=== PATIENT | male | born 1970 | race Caucasian/White ===

== ENCOUNTER 2016-12-29 15:39 | Outpatient (CLI) | payer OTHER ==
[~2016-12-29] VITALS: Ht 170.2 cm; Wt 99.5 kg
[2016-12-29 15:50] VITALS: BP 166/88; PULSE 88; RESP 18; Ht 170.2 cm; Wt 99.5 kg
--- NOTE | 2016-12-29 16:38 | PN ---
Date/Time of Note Date/Time of Note DATE: 12/29/16 TIME: 15:59 Outpatient Progress Note Chief Complaint Syncopal episode/hypertension/dizziness/impaired hearing/hypothyroidism/ HPI Syncopal episode, patient has 2 syncopal episode in last 1 month, patient usually standing up and patient passes out, no aura or no seizure-like activity , no headache or dizziness, no weakness, patient passes out all of suddenly, no loss of bladder or bowel control, patient was hospitalized 2-3 times, cardiac work was done, according to the daughter he had a EEG done, Hypertension/no headache or dizziness, today blood pressure was 190 systolic in the morning, patient has been on the blood pressure medication, no local focal weakness, Dizziness/patient feel dizziness lightness, patient on Antivert, patient also has vertigo, Impaired hearing patient has slightly impaired hearing on her right side, Hypothyroidism/patient has hypothyroidism, on medication, Review of Systems Const: No Fever, no chills, no Wt. loss, no Fatigue, normal appetite, no diaphoresis. Eyes: No pain, no discharge, no redness, no visual change, no foreign body. ENT: No pain, no bleeding, no congestion, no sore throat, no dysphagia, no discharge or rhinitis. Slight impaired hearing in the right ear, Lymph: No adenopathy, no tender nodes, no lymphedema. Resp: No SOB, no cough, no sputum, no wheezing, no chest pain. CV: No chest pain, no palpitaions, no MENJIVAR, no PND, no edema. Patient has multiple syncopal episode, patient had 2 episodes last 1 month, patient was hospitalized, workup was done, nothing found GI: Normal appetite, no pain, no nausea, no vomiting, no diarrhea, no blood, no constipation. : No frequency, no urgency, no dysuria, no hematuria, no flank pain, no discharge, no bleeding. Musc: No bone/joint pain, no back pain, no neck pain, no knee pain, no restricted ROM. Skin: No rash, no skin lesions, no erythema, no laceration, no bruising, no pruritus. Neuro: No LUCIA, no dizziness, no syncope, no seizure, no focal-weakness. Endo: No polyuria, no polydypsia, no dry-skin, no temp-intolerance. Psych: No hallucinations, no depression, no anxiety, no suicidal ideation. Ext: No edema, no pain, no ulcer, no weakness. Physical Exam Vital Signs Date Time Temp Pulse Resp B/P Pulse Ox O2 Delivery O2 Flow Rate FiO2 12/29/16 15:50 98.6 88 18 166/88 96 Room Air General Appearance: A [A 46] year-old male who appears well-developed, well- nourished, in no acute distress.] HEENT: [Head normocephalic, atraumatic. Pupils equal, round, reactive to light and accommodate. Sclerae are no jaundice. Nasal turbinates pink without erythema or nasal discharge. Mucous membranes pink and moist without lesions. Oropharynx clear without any exudate or discharge.] NECK: [Supple. Trachea midline, No thyromegaly, No cervical lymphadenopathy, No mass, No carotid bruits, No JVD, Carotid pulses 2+ bilaterally.] PULMONARY: [Clear to auscultaion bilaterally, No retractions, Chest expansion symmetric bilaterally, no rales, no ronchi, no dulness on percussion.] CARDIAC: [Normal SI and S2, Regular rate and rythm, no murmur, gallop, or rub.] GASTROINTESTINAL: [Abdomen is soft, non-tender, Non Rigid, No distention, Positive bowel sounds x4 quadrants, Liver normal.] SKIN: [Warm, dry, no rash, no bruise, no echmosis.] EXTREMITIES: [Bilateral lower extremities normal, no edema, no phlabitus, pulse palpable, no contracture.] MUSCULOSKELETAL: [Spine Normal, Non-tender, Normal range of motion, No swelling , no deformity, no clubbing, or cyanosis, the patient has no edema to bilateral lower extremities, dorsalis pedis pulses palpable bilaterally.] NEUROLOGIC: [The patient is awake, alert, oriented, responding to yes/no questions appropriately, moving all extremities, cranial nerve intact, normal strenght, normal power, normal coordination, normal gait.] Allergies Coded Allergies: No Known Drug Allergies (Verified Allergy, Unknown, 12/29/16) PMH Hypertension/dizziness/hypothyroidism/syncopal episode/vertigo/hypertrophy of both inferior nasal turbulence N nasal surgery/skin graft/orthopedic surgery right shoulder/nasal polyp surgery s Social Hx No smoking or drinking no drugs, Family Hx Noncontributory Assessment/Plan Impression Syncopal episode/unknown reason Hypertension/vertigo/impaired hearing/hypothyroidism Plan Patient blood pressure still elevated, patient education done, patient daughter explained multiple reasons of syncopal episode, patient daughter explained that if possible if they can video when he falls down and bring it to us or her primary care physician, Patient encouraged to follow with the primary care physician, As patient's blood pressure is elevated, patient advised to take lisinopril 20 mg in the morning, check the blood pressure noon and in the evening, his blood pressure is about 150 give extra dose of lisinopril, We will check if patient has neurological workup or not, the patient has no neurological workup will requested, PURA JUAN MD Dec 29, 2016 16:09
== END 2016-12-29 16:47 | disposition home or self-care (01) ==
LOC: DCC 15:39
PROVIDERS: ATTEND Internal Medicine
DX: P59.9 Neonatal jaundice, unspecified (principal); I10 Essential (primary) hypertension; R42 Dizziness and giddiness; H91.90 Unspecified hearing loss, unspecified ear; E03.9 Hypothyroidism, unspecified

== ENCOUNTER 2017-01-12 13:54 | Outpatient (CLI) | payer OTHER ==
[~2017-01-12] VITALS: Ht 170.2 cm; Wt 98.6 kg
[2017-01-12 14:03] VITALS: BP 143/81; PULSE 78; RESP 16; Ht 170.2 cm; Wt 98.6 kg
--- NOTE | 2017-01-12 14:48 | PN ---
Date/Time of Note Date/Time of Note DATE: 01/12/17 TIME: 14:42 Outpatient Progress Note Chief Complaint Febrile illness/hypertension/dizziness/hypothyroidism HPI Patient had a febrile illness, patient was seen in emergency room, patient had viral infection, patient was not given any medication, Hypertension/no headache or dizziness, no local focal weakness, very impaired vision, Dizziness/patient still has occasional dizziness, patient when bends or turns fast patient does get dizziness, Hypothyroidism/no puffiness of eyes, no constipation, on medication, History of syncopal episode/patient has a history of syncopal episode, patient was recently hospitalized, no syncope after discharge, Review of Systems Const: No Fever, no chills, no Wt. loss, no Fatigue, normal appetite, no diaphoresis. Eyes: No pain, no discharge, no redness, no visual change, no foreign body. ENT: No pain, no bleeding, no congestion, no sore throat, no dysphagia, no discharge or rhinitis slight impaired hearing,. Lymph: No adenopathy, no tender nodes, no lymphedema. Resp: No SOB, no cough, no sputum, no wheezing, no chest pain. CV: No chest pain, no palpitaions, no MENJIVAR, no PND, no edema. GI: Normal appetite, no pain, no nausea, no vomiting, no diarrhea, no blood, no constipation. : No frequency, no urgency, no dysuria, no hematuria, no flank pain, no discharge, no bleeding. Musc: No bone/joint pain, no back pain, no neck pain, no knee pain, no restricted ROM. Skin: No rash, no skin lesions, no erythema, no laceration, no bruising, no pruritus. Neuro: No LUCIA, no dizziness, no syncope, no seizure, no focal-weakness. Endo: No polyuria, no polydypsia, no dry-skin, no temp-intolerance. Psych: No hallucinations, no depression, no anxiety, no suicidal ideation. Ext: No edema, no pain, no ulcer, no weakness. Physical Exam General Appearance: A A 46 year-old male who appears well-developed, well- nourished, in no acute distress. HEENT: Head normocephalic, atraumatic. Pupils equal, round, reactive to light and accommodate. Sclerae are no jaundice. Nasal turbinates pink without erythema or nasal discharge. Mucous membranes pink and moist without lesions. Oropharynx clear without any exudate or discharge. NECK: Supple. Trachea midline, No thyromegaly, No cervical lymphadenopathy, No mass, No carotid bruits, No JVD, Carotid pulses 2+ bilaterally. PULMONARY: Clear to auscultaion bilaterally, No retractions, Chest expansion symmetric bilaterally, no rales, no ro nchi, no dulness on percussion. CARDIAC: Normal SI and S2, Regular rate and rythm, no murmur, gallop, or rub. GASTROINTESTINAL: Abdomen is soft, non-tender, Non Rigid, No distention, Positive bowel sounds x4 quadrants, Liver normal. SKIN: Warm, dry, no rash, no bruise, no echmosis., No laceration, EXTREMITIES: Bilateral lower extremities normal, no edema, no phlabitus, pulse palpable, no contracture. MUSCULOSKELETAL: Spine Normal, Non-tender, Normal range of motion, No swelling, no deformity, no clubbing, or cyanosis, the patient has no edema to bilateral lower extremities, dorsalis pedis pulses palpable bilaterally. NEUROLOGIC: The patient is awake, alert, oriented, responding to yes/no questions appropriately, moving all extremities, cranial nerve intact, normal strenght, normal power, normal coordination, normal gait. Allergies Coded Allergies: No Known Drug Allergies (Verified Allergy, Unknown, 12/29/16) PMH No change Social Hx No change Family Hx No change Assessment/Plan Impression Viral febrile illness resolving/hypertension/dizziness improving/hypothyroidism/ history of syncopal episode Plan Patient has no syncopal episode after the discharge, patient and family education done, Patient encouraged to follow with the primary care physician, patient also be careful while walking and turning, fall precaution, patient has appointment with the neurologist, Patient encouraged to follow with primary care and neurologist, 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
[2017-01-12] MEDS ORDERED: ASPI-664 PO (15:04)
[2017-01-12] MEDS ORDERED: MECL-77 PO (15:04)
[2017-01-12] MEDS ORDERED: ATEN-51 PO (15:04)
[2017-01-12] MEDS ORDERED: VENL-42 PO (15:04)
[2017-01-12] MEDS ORDERED: BENA20TA48 PO (15:04)
== END 2017-01-12 16:35 | disposition home or self-care (01) ==
LOC: DCC 13:54
PROVIDERS: ATTEND Internal Medicine
DX: R50.9 Fever, unspecified (principal); I10 Essential (primary) hypertension; R42 Dizziness and giddiness; E03.9 Hypothyroidism, unspecified